=== PATIENT | male | born 1955 | race Caucasian/White ===

== ENCOUNTER → 2017-07-05 | Outpatient (CLI) | payer OTHER ==
[~2017-07-05] MED LIST: ASPI81CH PO; BETAPACE PO; CARV25 PO; CHLO25B PO; CHOL10002 PO; LISI20 PO; Norco 5-325 Ta1 EACH PO; PRED20 PO; TAMS.4ER PO
[2017-07-05 17:51] LABS: BASOPHILS ABSOLUTE AUTO 0.06 K/mm3 (0.00-0.23); BASOPHILS PERCENT AUTO 1 % (0-2); EOSINOPHILS ABSOLUTE AUTO 0.14 K/mm3 (0.00-0.68); EOSINOPHILS PERCENT AUTO 2 % (0-6); Hematocrit 47.7 % (37.0-53.0); Hemoglobin 15.8 g/dL (13.5-17.5); IMMATURE GRAN ABSOLUTE AUTO 0.02 K/mm3 (0.00-0.10); IMMATURE GRAN PERCENT AUTO 0 % (0-1); LYMPHOCYTES ABSOLUTE AUTO 1.29 K/mm3 (0.84-5.20); LYMPHOCYTES PERCENT AUTO 17 % (21-46); MONOCYTES ABSOLUTE AUTO 0.51 K/mm3 (0.16-1.47); MONOCYTES PERCENT AUTO 7 % (4-13); Mean Corpuscular HGB Conc 33.1 g/dL (31.5-36.5); Mean Corpuscular Volume 91 fL (80-100); Mean Platelet Volume 10.8 fL (9.1-12.4); NEUTROPHILS ABSOLUTE AUTO 5.72 K/mm3 (1.96-9.15); NEUTROPHILS PERCENT AUTO 74 % (41-73); Platelet Count 234 K/mm3 (150-400); RDW Coefficient Variation 13.9 % (11.7-14.2); RDW Standard Deviation 46.7 fL (35.1-46.3); Red Blood Cell Count 5.27 M/mm3 (4.30-5.90); White Blood Cell Count 7.74 K/mm3 (4.00-11.30)
[2017-07-05 19:05] LABS: Alanine Aminotransfer (ALT/SGP 96 U/L (12-78); Albumin, Blood 3.3 g/dL (3.4-5.0); Alk Phos 85 U/L (50-136); Anion Gap 8 mmol/L (6-16); Aspartate Aminotrans (AST/SGOT 73 U/L (12-37); Bilirubin, Total 0.8 mg/dL (0.1-1.0); Blood Urea Nitrogen 15 mg/dL (8-24); Bun/Creatinine Ratio 18.1 (12.0-20.0); CHOL/HDL RATIO 3.3; CO2, Blood 22 mmol/L (21-32); Calcium, Blood 8.6 mg/dL (8.5-10.1); Chloride, Blood 111 mmol/L (98-108); Cholesterol 148 mg/dL (50-200); Creatinine, Blood 0.83 mg/dL (0.60-1.20); Globulin, Blood 3.3 g/dL (2.2-4.0); Glomerular Filtration Rate >60 (60-); Glucose, Blood 99 mg/dL (70-99); HDL Cholesterol 45 mg/dL (>39); LDL/HDL RATIO 1.8; Low Density Lipoprotein Chol 79 mg/dL (0-110); Potassium, Blood 4.4 mmol/L (3.5-5.5); Sodium, Blood 141 mmol/L (136-145); Total Protein, Blood 6.6 g/dL (6.4-8.2); Triglycerides 118 mg/dL (30-160); Very Low Density Lipoprot Chol 23 mg/dL (6-32)
== END | disposition home or self-care (01) ==
LOC: LAB 17:40
PROVIDERS: Nurse Practitioner Family
DX: E55.9 Vitamin D deficiency, unspecified (principal); I42.9 Cardiomyopathy, unspecified; I10 Essential (primary) hypertension
CPT/HCPCS: 80053; 80061; 82306; 84443; 85025

== ENCOUNTER 2017-09-04 07:24 | Day surgery (SDC) | payer OTHER ==
[~2017-09-04] VITALS: Ht 172.7 cm; Wt 87.5 kg
[~2017-09-04 07:24] MED LIST changes: -BETAPACE PO; -PRED20 PO; -TAMS.4ER PO
== END 2017-09-04 22:37 | disposition home or self-care (01) ==
LOC: ORSCMMR 07:24 → ORD 08:30 → ORSCMMR 22:37
PROVIDERS: Internal Medicine Gastroenterology
PROC: 0DBK8ZX Excision of Ascending Colon, Via Natural or Artificial Opening Endoscopic, Diagnostic (ICD-10-PCS; principal; 2017-09-04 08:30)
PROC: 0DBN8ZX Excision of Sigmoid Colon, Via Natural or Artificial Opening Endoscopic, Diagnostic (ICD-10-PCS; principal; 2017-09-04 08:30)
DX: R19.5 Other fecal abnormalities (principal); D12.2 Benign neoplasm of ascending colon; D12.5 Benign neoplasm of sigmoid colon; K64.4 Residual hemorrhoidal skin tags; K57.30 Diverticulosis of large intestine without perforation or abscess without bleeding; I42.8 Other cardiomyopathies; Z79.82 Long term (current) use of aspirin; Z79.899 Other long term (current) drug therapy
CPT/HCPCS: 88305; J7120

== ENCOUNTER 2018-04-09 07:29 | Observation (INO) | payer OTHER ==
[~2018-04-09] VITALS: Ht 170.2 cm; Wt 91.9 kg
[~2018-04-09 07:29] MED LIST changes: +BETAPACE PO; +TAMS.4ER PO
[2018-04-10] MEDS ORDERED: PRED20 PO ×2 (14:32→14:43)
== END 2018-04-10 15:13 | disposition home or self-care (01) ==
LOC: ICUE 07:29 → MHTC 07:29 → PCU 10:28 → ICUE 16:19 → MHTC 04-10 00:01 → ICUE 04-10 00:01
DX: Z45.02 Encounter for adjustment and management of automatic implantable cardiac defibrillator (principal); J95.811 Postprocedural pneumothorax; J44.1 Chronic obstructive pulmonary disease with (acute) exacerbation; I42.9 Cardiomyopathy, unspecified; I10 Essential (primary) hypertension; J93.9 Pneumothorax, unspecified; I42.0 Dilated cardiomyopathy; I47.2 Ventricular tachycardia; I49.01 Ventricular fibrillation; Z87.891 Personal history of nicotine dependence; Z79.899 Other long term (current) drug therapy
CPT/HCPCS: 33249; 71045; 71046; 76937; 94640; 96365; 96375; 96376; 99152; 99153; C1721; C1898; G0378; J0360; J0690; J1644; J2250; J2405; J2920; J3010; J7030; J7040; Q9967

== ENCOUNTER 2020-03-16 09:11 | Day surgery (SDC) | payer OTHER ==
[~2020-03-16] VITALS: Ht 175.3 cm; Wt 93.8 kg
[~2020-03-16 09:11] MED LIST changes: +AMLO5 PO; +ASPI325 PO; +FINA5 PO; +PRED20 PO; +SOTO80 PO; +Vitamin D2000 UNIT PO; +ZESTRIL40 M1 PO
== END 2020-03-16 11:44 | disposition home or self-care (01) ==
LOC: ORSCSDS 09:11
PROVIDERS: Ophthalmology
PROC: 08RK3JZ Replacement of Left Lens with Synthetic Substitute, Percutaneous Approach (ICD-10-PCS; principal; 2020-03-16 10:30)
DX: H25.042 Posterior subcapsular polar age-related cataract, left eye (principal); H21.81 Floppy iris syndrome; I10 Essential (primary) hypertension; I25.10 Atherosclerotic heart disease of native coronary artery without angina pectoris; I25.2 Old myocardial infarction; Z87.891 Personal history of nicotine dependence; Z95.0 Presence of cardiac pacemaker; I63.9 Cerebral infarction, unspecified; Z79.899 Other long term (current) drug therapy; Z79.82 Long term (current) use of aspirin
CPT/HCPCS: J2001; J2250; J3010; J3301; J7040; V2632

== ENCOUNTER 2020-03-30 09:52 | Day surgery (SDC) | payer OTHER ==
[~2020-03-30] VITALS: Ht 172.7 cm; Wt 93.4 kg
== END 2020-03-30 12:03 | disposition home or self-care (01) ==
LOC: ORSCSDS 09:52
PROVIDERS: Ophthalmology
PROC: 08RJ3JZ Replacement of Right Lens with Synthetic Substitute, Percutaneous Approach (ICD-10-PCS; principal; 2020-03-30 11:00)
DX: H25.11 Age-related nuclear cataract, right eye (principal); I10 Essential (primary) hypertension; I25.2 Old myocardial infarction; I25.10 Atherosclerotic heart disease of native coronary artery without angina pectoris; Z95.0 Presence of cardiac pacemaker; Z79.82 Long term (current) use of aspirin; Z79.899 Other long term (current) drug therapy
CPT/HCPCS: 82947; J2001; J2250; J2704; J3010; J3300; J3301; J7040; V2632

== ENCOUNTER 2024-03-10 19:33 | Emergency (ER) | payer OTHER ==
[~2024-03-10] VITALS: Ht 172.7 cm; Wt 95.2 kg
[2024-03-10 20:51] LABS: BASOPHILS ABSOLUTE AUTO 0.05 K/mm3 (0.00-0.23); BASOPHILS PERCENT AUTO 1 % (0-2); EOSINOPHILS PERCENT AUTO 2 % (0-6); Hematocrit 44.7 % (37.0-53.0); Hemoglobin 14.4 g/dL (13.5-17.5); IMMATURE GRAN ABSOLUTE AUTO 0.04 K/mm3 (0.00-0.10); IMMATURE GRAN PERCENT AUTO 0 % (0-1); LYMPHOCYTES ABSOLUTE AUTO 1.62 K/mm3 (0.84-5.20); LYMPHOCYTES PERCENT AUTO 18 % (21-46); MONOCYTES ABSOLUTE AUTO 1.02 K/mm3 (0.16-1.47); MONOCYTES PERCENT AUTO 11 % (4-13); Mean Corpuscular HGB 29.9 pg (26.0-34.0); Mean Corpuscular HGB Conc 32.2 g/dL (31.5-36.5); Mean Corpuscular Volume 93 fL (80-100); Mean Platelet Volume 9.4 fL (9.1-12.4); NEUTROPHILS ABSOLUTE AUTO 6.18 K/mm3 (1.96-9.15); NEUTROPHILS PERCENT AUTO 68 % (41-73); Platelet Count 281 K/mm3 (150-400); RDW Coefficient Variation 14.3 % (11.7-14.2); Red Blood Cell Count 4.82 M/mm3 (4.30-5.90); White Blood Cell Count 9.11 K/mm3 (4.00-11.30)
[2024-03-10 21:32] LABS: Albumin, Blood 2.9 g/dL (3.4-5.0); Albumin/Globulin Ratio 0.7 (0.8-1.8); Bilirubin, Total 0.3 mg/dL (0.1-1.0); Bun/Creatinine Ratio 25.7 (12.0-20.0); Calcium, Blood 9.5 mg/dL (8.5-10.1); Creatinine, Blood 0.78 mg/dL (0.60-1.20); Globulin, Blood 3.9 g/dL (2.2-4.0); Potassium, Blood 4.5 mmol/L (3.5-5.5); Total Protein, Blood 6.8 g/dL (6.4-8.2)
[2024-03-10 23:30] VITALS: BP 146/85
[2024-03-10] MEDS ORDERED: PredniSONE 20 MG Tab PO ONE (23:40)
[2024-03-10] MEDS ORDERED: DELTASONE20 MG PO (23:41)
== END 2024-03-10 23:54 | disposition home or self-care (01) ==
LOC: ER 19:33
PROVIDERS: Student in an Organized Health Care Education/Training Program
DX: M25.551 Pain in right hip (principal); M25.552 Pain in left hip; M25.562 Pain in left knee; M25.561 Pain in right knee; M25.511 Pain in right shoulder; I10 Essential (primary) hypertension; J18.9 Pneumonia, unspecified organism; Z79.82 Long term (current) use of aspirin; Z79.899 Other long term (current) drug therapy; Z95.0 Presence of cardiac pacemaker
CPT/HCPCS: 80053; 83880; 85025; 99285; J7512

== ENCOUNTER 2024-08-17 18:18 | Observation (INO) | payer OTHER, MEDICARE ==
[~2024-08-17] VITALS: Ht 172.7 cm; Wt 94.8 kg
[~2024-08-17 18:18] MED LIST changes: -ASPI325 PO; +DELTASONE20 MG PO
[2024-08-17] MEDS ORDERED: Diphth,Pertuss(Acell),Tet Vac 0.5 ML VIAL IM ONE (18:30)
[2024-08-17] MEDS ORDERED: Lactated Ringer's 1,000 ML IV ONE (18:30)
[2024-08-17 18:34] LABS: BASOPHILS PERCENT AUTO 1 % (0-2); EOSINOPHILS PERCENT AUTO 2 % (0-6); Hematocrit 47.1 % (37.0-53.0); Hemoglobin 15.3 g/dL (13.5-17.5); IMMATURE GRAN ABSOLUTE AUTO 0.15 K/mm3 (0.00-0.10); IMMATURE GRAN PERCENT AUTO 1 % (0-1); LYMPHOCYTES ABSOLUTE AUTO 1.26 K/mm3 (0.84-5.20); LYMPHOCYTES PERCENT AUTO 9 % (21-46); MONOCYTES ABSOLUTE AUTO 1.01 K/mm3 (0.16-1.47); MONOCYTES PERCENT AUTO 7 % (4-13); Mean Corpuscular HGB 27.6 pg (26.0-34.0); Mean Corpuscular HGB Conc 32.5 g/dL (31.5-36.5); Mean Corpuscular Volume 85 fL (80-100); Mean Platelet Volume 9.1 fL (9.1-12.4); NEUTROPHILS ABSOLUTE AUTO 11.06 K/mm3 (1.96-9.15); NEUTROPHILS PERCENT AUTO 80 % (41-73); Platelet Count 265 K/mm3 (150-400); RDW Coefficient Variation 16.5 % (11.7-14.2); RDW Standard Deviation 51.6 fL (35.1-46.3); Red Blood Cell Count 5.54 M/mm3 (4.30-5.90); White Blood Cell Count 13.78 K/mm3 (4.00-11.30)
[2024-08-17 18:53] LABS: Albumin, Blood 2.9 g/dL (3.4-5.0); Albumin/Globulin Ratio 0.9 (0.8-1.8); Bilirubin, Total 0.5 mg/dL (0.1-1.0); Bun/Creatinine Ratio 28.5 (12.0-20.0); Calcium, Blood 8.9 mg/dL (8.5-10.1); Creatinine, Blood 0.88 mg/dL (0.60-1.20); Globulin, Blood 3.4 g/dL (2.2-4.0); Potassium, Blood 4.1 mmol/L (3.5-5.5); Total Protein, Blood 6.3 g/dL (6.4-8.2)
[2024-08-17] MEDS ORDERED: Morphine Sulfate 4 MG/1 ML Injection IV ONE (19:05)
[2024-08-17 19:52] LABS: Source, Urine Clean Catch
[2024-08-17 19:58] LABS: Appearance, Urine Clear (Clear); Bilirubin, Urine Neg (Neg); Blood, Urine Neg (Neg); Color, Urine Yellow (P-Yellow); Glucose Qualitative, Urine Neg (Neg); Ketones, Urine Neg (Neg); Leukocyte Esterase, Urine Neg (Neg); Nitrite, Urine Neg (Neg); Protein, Urine 1+ (Neg); Urobilinogen, Urine NORM (Normal)
[2024-08-17] MEDS ORDERED: DICL75ER (22:39)
[2024-08-17] MEDS ORDERED: Cyclobenzaprine5 MG ×2 (22:39)
[2024-08-17] MEDS ORDERED: HYDROmorphone HCl/Pf 1MG SYR IV PRN (22:40)
[2024-08-17] MEDS ORDERED: OxyCODONE HCL 5 MG TAB PO PRN (22:45)
[2024-08-17] MEDS ORDERED: Ondansetron HCl 2 MG / ML 2ML Vial IV PRN (22:45)
[2024-08-17] MEDS ORDERED: FLU VACC TS2024-25(6MOS UP)/PF 45 MCG/0.5 ML SYRINGE IM ONE (22:45)
[2024-08-17] MEDS ORDERED: Acetaminophen 325 MG TABLET PO PRN (22:45)
[2024-08-17 23:01] VITALS: BP 166/94
[2024-08-17] MEDS ORDERED: Ketorolac Tromethamine 15mg Vial IV PRN (23:10)
--- NOTE | 2024-08-18 04:38 | NUR ---
SHIFT SUMMARY JIM WAS ALERT AND FULLY ORIENTED ON ARRIVAL FROM THE ED. PT ABLE TO AMBULATE SELF FROM GOURNEY TO BED. PT USING URINAL APPROPRIATELY. PT C/O PAIN TO R RIBS, MEDICATED PER EMAR. PAIN WELL CONTROLLED AT THIS TIME. NO ACUTE EVENTS OR CHANGES TO PT CONDITION AFTER ARRIVAL.
[2024-08-18 04:39] VITALS: BP 139/94
[2024-08-18 05:40] LABS: Hematocrit 43.9 % (37.0-53.0); Hemoglobin 14.4 g/dL (13.5-17.5); Mean Corpuscular HGB 28.2 pg (26.0-34.0); Mean Corpuscular HGB Conc 32.8 g/dL (31.5-36.5); Mean Corpuscular Volume 86 fL (80-100); Mean Platelet Volume 9.3 fL (9.1-12.4); Platelet Count 254 K/mm3 (150-400); RDW Coefficient Variation 16.8 % (11.7-14.2); Red Blood Cell Count 5.11 M/mm3 (4.30-5.90); White Blood Cell Count 9.69 K/mm3 (4.00-11.30)
[2024-08-18 06:42] LABS: Bun/Creatinine Ratio 22.6 (12.0-20.0); Calcium, Blood 8.9 mg/dL (8.5-10.1); Creatinine, Blood 0.8 mg/dL (0.60-1.20); Magnesium, Blood 2.4 mg/dL (1.6-2.4); Potassium, Blood 4.3 mmol/L (3.5-5.5)
[2024-08-18 07:08] VITALS: BP 159/89
[2024-08-18] MEDS ORDERED: Enoxaparin 40 MG/0.4 ML SYR SC SCH (09:00)
[2024-08-18] MEDS ORDERED: Sennosides 8.6 MG Tab PO SCH (09:00)
[2024-08-18 11:12] VITALS: BP 156/110
[2024-08-18 14:47] VITALS: BP 153/103
[2024-08-18] MEDS ORDERED: OXYC5 PO ×2 (15:26)
[2024-08-18 15:38] VITALS: BP 148/111
--- NOTE | 2024-08-18 15:54 | NUR ---
PT SBP HIGH, REPORTED TO DR CEDENO. PT TO RESUME HOME MEDS UPON DC.
--- NOTE | 2024-08-18 15:56 | NUR ---
PT AMBULATED IN FOSTER W/O DIFFICULTY. USED IS AND WAS ABLE TO INHALE AND RAISE TO 2000. REPEATED MULTIPLE TIMES. WISHES TO DC HOME.
[2024-09-10] MEDS ORDERED: OMEP20ER PO (12:18)
[2024-09-10] MEDS ORDERED: CARVEDILOL25 M9 PO (12:18)
== END 2024-08-18 16:20 | disposition home or self-care (01) ==
LOC: ER 18:18 → SURS 18:19 → ER 20:32 → SURS 20:32
PROVIDERS: Student in an Organized Health Care Education/Training Program; ADMIT Surgery
DX: S22.41XA Multiple fractures of ribs, right side, initial encounter for closed fracture (principal); R55 Syncope and collapse; I50.9 Heart failure, unspecified; I11.0 Hypertensive heart disease with heart failure; D72.829 Elevated white blood cell count, unspecified; I44.7 Left bundle-branch block, unspecified; E66.9 Obesity, unspecified; V67.5XXA Driver of heavy transport vehicle injured in collision with fixed or stationary object in traffic accident, initial encounter; Z79.82 Long term (current) use of aspirin; Z79.52 Long term (current) use of systemic steroids; I25.2 Old myocardial infarction; Z86.73 Personal history of transient ischemic attack (TIA), and cerebral infarction without residual deficits; Z86.19 Personal history of other infectious and parasitic diseases; Z95.810 Presence of automatic (implantable) cardiac defibrillator; Z68.33 Body mass index [BMI] 33.0-33.9, adult
CPT/HCPCS: 36415; 70450; 71260; 72125; 74177; 80048; 80053; 83690; 83735; 84484; 85025; 85027; 90471; 90715; 93005; 93010; 96372; 96374; 99285-25; A9270; G0378; J1650; J2270; J7120; Q9967

== ENCOUNTER 2024-09-03 21:00 | Observation (INO) | payer MEDICARE ==
[~2024-09-03] VITALS: Ht 172.7 cm; Wt 96.7 kg
[~2024-09-03 21:00] MED LIST changes: +Cyclobenzaprine5 MG; +DICL75ER; +OXYC5 PO
[2024-09-03 21:19] LABS: BASOPHILS ABSOLUTE AUTO 0.06 K/mm3 (0.00-0.23); BASOPHILS PERCENT AUTO 1 % (0-2); EOSINOPHILS ABSOLUTE AUTO 0.25 K/mm3 (0.00-0.68); EOSINOPHILS PERCENT AUTO 3 % (0-6); Hematocrit 41.2 % (37.0-53.0); Hemoglobin 13.5 g/dL (13.5-17.5); IMMATURE GRAN ABSOLUTE AUTO 0.05 K/mm3 (0.00-0.10); IMMATURE GRAN PERCENT AUTO 1 % (0-1); LYMPHOCYTES ABSOLUTE AUTO 1.08 K/mm3 (0.84-5.20); LYMPHOCYTES PERCENT AUTO 12 % (21-46); MONOCYTES ABSOLUTE AUTO 0.77 K/mm3 (0.16-1.47); MONOCYTES PERCENT AUTO 9 % (4-13); Mean Corpuscular HGB 28.4 pg (26.0-34.0); Mean Corpuscular HGB Conc 32.8 g/dL (31.5-36.5); Mean Corpuscular Volume 87 fL (80-100); Mean Platelet Volume 9.1 fL (9.1-12.4); NEUTROPHILS ABSOLUTE AUTO 6.71 K/mm3 (1.96-9.15); NEUTROPHILS PERCENT AUTO 75 % (41-73); Platelet Count 296 K/mm3 (150-400); RDW Coefficient Variation 15.9 % (11.7-14.2); RDW Standard Deviation 50.1 fL (35.1-46.3); Red Blood Cell Count 4.76 M/mm3 (4.30-5.90); White Blood Cell Count 8.92 K/mm3 (4.00-11.30)
[2024-09-03 21:43] LABS: Albumin, Blood 2.8 g/dL (3.4-5.0); Albumin/Globulin Ratio 0.8 (0.8-1.8); Bilirubin, Total 0.3 mg/dL (0.1-1.0); Bun/Creatinine Ratio 31.7 (12.0-20.0); Calcium, Blood 8.3 mg/dL (8.5-10.1); Creatinine, Blood 0.76 mg/dL (0.60-1.20); Globulin, Blood 3.3 g/dL (2.2-4.0); Potassium, Blood 3.6 mmol/L (3.5-5.5); Total Protein, Blood 6.1 g/dL (6.4-8.2)
[2024-09-03] MEDS ORDERED: FLU VACC TS2024-25(6MOS UP)/PF 45 MCG/0.5 ML SYRINGE IM ONE (23:35)
[2024-09-03] MEDS ORDERED: Nitroglycerin 0.4 MG SUBL SL PRN (23:35)
[2024-09-03] MEDS ORDERED: Acetaminophen 325 MG TABLET PO PRN (23:35)
[2024-09-04 05:40] LABS: BASOPHILS ABSOLUTE AUTO 0.06 K/mm3 (0.00-0.23); BASOPHILS PERCENT AUTO 1 % (0-2); EOSINOPHILS ABSOLUTE AUTO 0.28 K/mm3 (0.00-0.68); EOSINOPHILS PERCENT AUTO 3 % (0-6); Hematocrit 41.4 % (37.0-53.0); Hemoglobin 13.6 g/dL (13.5-17.5); IMMATURE GRAN ABSOLUTE AUTO 0.06 K/mm3 (0.00-0.10); IMMATURE GRAN PERCENT AUTO 1 % (0-1); LYMPHOCYTES ABSOLUTE AUTO 1.44 K/mm3 (0.84-5.20); LYMPHOCYTES PERCENT AUTO 17 % (21-46); MONOCYTES ABSOLUTE AUTO 1.03 K/mm3 (0.16-1.47); MONOCYTES PERCENT AUTO 12 % (4-13); Mean Corpuscular HGB 28.3 pg (26.0-34.0); Mean Corpuscular HGB Conc 32.9 g/dL (31.5-36.5); Mean Corpuscular Volume 86 fL (80-100); Mean Platelet Volume 8.8 fL (9.1-12.4); NEUTROPHILS ABSOLUTE AUTO 5.47 K/mm3 (1.96-9.15); NEUTROPHILS PERCENT AUTO 66 % (41-73); Platelet Count 289 K/mm3 (150-400); RDW Coefficient Variation 16.1 % (11.7-14.2); White Blood Cell Count 8.34 K/mm3 (4.00-11.30)
[2024-09-04 06:08] LABS: Alanine Aminotransfer (ALT/SGP 181 U/L (12-78); Albumin, Blood 2.8 g/dL (3.4-5.0); Albumin/Globulin Ratio 0.8 (0.8-1.8); Alk Phos 135 U/L (50-136); Anion Gap 11 mmol/L (3-11); Aspartate Aminotrans (AST/SGOT 58 U/L (12-37); Bilirubin, Total 0.5 mg/dL (0.1-1.0); Blood Urea Nitrogen 17 mg/dL (8-24); CHOL/HDL RATIO 4.5; CO2, Blood 24 mmol/L (21-32); Calcium, Blood 8.4 mg/dL (8.5-10.1); Chloride, Blood 109 mmol/L (98-108); Cholesterol 175 mg/dL (50-200); Creatinine, Blood 0.71 mg/dL (0.60-1.20); Globulin, Blood 3.4 g/dL (2.2-4.0); Glomerular Filtration Rate 101 (60-); Glucose, Blood 106 mg/dL (70-99); HDL Cholesterol 39 mg/dL (>39); LDL/HDL RATIO 2.9; Low Density Lipoprotein Chol 113 mg/dL (0-110); Potassium, Blood 3.9 mmol/L (3.5-5.5); Sodium, Blood 140 mmol/L (136-145); Total Protein, Blood 6.2 g/dL (6.4-8.2); Triglycerides 114 mg/dL (30-160); Very Low Density Lipoprot Chol 22 mg/dL (6-32)
[2024-09-04] MEDS ORDERED: Aspirin 81 MG Chew PO SCH (09:00)
[2024-09-04] MEDS ORDERED: Sotalol HCl 80 MG Tab PO SCH (09:00)
[2024-09-04] MEDS ORDERED: Enoxaparin 40 MG/0.4 ML SYR SC SCH (09:00)
[2024-09-04 13:03] VITALS: BP 127/86
--- NOTE | 2024-09-04 13:25 | NUR ---
ADMISSION NOTE: PATIENT ARRIVED TO THE UNIT AT 1300 VIA WHEELCHAIR, WAS ABLE TO SELF TRANSFER INTO THE BED. PATIENT CONTINUES TO REPORT "FEELING WEIRD" DENIES CHEST PAIN. VITALS OBTAINED AND STABLE; TELE ORDERED. PATIENT SETTLED IN ROOM, CALL LIGHT PROVIDED, NO SIGNS OR SYMPTOMS OF DISTRESS, PLAN OF CARE ONGOING.
[2024-09-04] MEDS ORDERED: TERBINAFINE HC250 MG PO ×2 (13:34)
[2024-09-04] MEDS ORDERED: DICL75ER PO ×2 (13:34)
[2024-09-04 14:43] VITALS: BP 138/82
--- NOTE | 2024-09-04 16:38 | NUR ---
SHIFT SUMMARY: PATIENT IS ALERT AND ORIENTEDX4/INDEPENDENT, MAKES NEEDS KNOWN. HE IS RUNNING A PACED ON TELE; NO EVENTS SINCE ADMISSION. HE IS TO UNDERGO A STRESS TEST TOMORROW 09/05/24 AT 1300; SEE NURSE NOTIFY FOR INSTRUCTIONS. PATIENT IN BED, CALL LIGHT WITHIN REACH, NO SIGNS OR SYMPTOMS OF DISTRESS, PLAN OF CARE ONGOING.
[2024-09-04 21:17] VITALS: BP 157/93
--- NOTE | 2024-09-04 23:31 | NUR ---
2330- VIDEO PRODUCTION SPECIALIST CALLED AND REPORTED ST CHANGES. PRN EKG COMPLETED, NO CHANGES FROM PREVIOUS EKG. PT DENIES CX PAIN/ PRESSURE OR SOB. PROVIDER WALI CALLED AND INFORMED OF OCCURANCE. PROVIDER HAD NO ORDERS.
[2024-09-04 23:53] VITALS: BP 174/91
[2024-09-05 00:01] VITALS: BP 150/89
[2024-09-05] MEDS ORDERED: AmLODIPine Besylate 5 MG Tab PO SCH (00:25)
--- NOTE | 2024-09-05 05:08 | NUR ---
SHIFT SUMMARY JIM WAS ALERT AND FULLY ORIENTED ON ASSESSMENT. PT DENIES CHEST PAIN, PRESSURE, OR ABNORMAL SENSATION, DENIES SOB. DURING THIS SHIFT TELE ALERTED ME THAT PT WAS HAVING SOME ST ELEVATION, HIS B/P WAS ALSO NOTED TO BE TRENDING UP, PT ALSO HAD 7 BEAT RUN OF VTACH PER AWNING FINISHER. PT EMAR WAS LACKING SEVERAL OF THE PT'S HOME MEDS. HOSPITALIST CONTACTED. ORDERS RECIEVED. PT WAS ASYMPTOMATIC T/O SHIFT. NO OTHER CHANGES TO PT CONDITION NOTED.
[2024-09-05 05:38] VITALS: BP 164/102
[2024-09-05 08:15] VITALS: BP 134/93
[2024-09-05] MEDS ORDERED: Lisinopril 20 MG Tab PO SCH (09:00)
[2024-09-05] MEDS ORDERED: Caffeine Citrated 60 MG/3 ML Vial ONE (11:23)
[2024-09-05] MEDS ORDERED: Regadenoson 0.4 MG/5 ML SYRINGE ONE (11:23)
[2024-09-05 14:48] VITALS: BP 138/86
--- NOTE | 2024-09-05 17:36 | NUR ---
SHIFT SUMMARY PATIENT HAD STRESS TEST TODAY AND ORDERS FOR NPO AFTER MIDNIGHT PLACED FOR PROCEDURE IN THE AM. PATIENT ON TELE, HAD A 10 BEAT RUN OF V-TACH, DR. MENDOZA NOTIFIED. PATIENT UP TO VISIT SON IN ROOM 356, DR. MENDOZA IS AWARE AND REPORTS OKAY TO VISIT. TELE AND MED FLOOR CHARGE ARE AWARE. PATIENT IS ATRIAL PACED AT 69 AT THIS TIME PER INDOOR PLANT TECHNICIAN. DENIES CHEST PAIN AND SOB.
[2024-09-05 19:26] VITALS: BP 137/96
[2024-09-05] MEDS ORDERED: Zolpidem Tartrate 10 MG Tab PO SCH (21:00)
[2024-09-06 00:43] VITALS: BP 167/101
[2024-09-06 05:36] VITALS: BP 120/80
--- NOTE | 2024-09-06 05:50 | NUR ---
SHIFT SUMMARY JIM WAS ALERT AND FULLY ORIENTED ON ASSESSMENT. PT DENIES NEW COMPLAINTS, BUT ENDORSES FEELING INTERMITTENTLY LIGHT HEADED DURING DAY SHIFT. 2 CALLS FROM TELE EARLY IN SHIFT FOR SHORT SVT RUNS (7BEAT). NO CALLS PAST 2100. PT HAS NO NEW COMPLAINTS. VARIABLE B/P, BUT MOST OFTEN HYPERTENSIVE. DR AWARE. NO ACUTE EVENTS. PT NPO FROM MIDNIGHT FOR CARDIOLOGY.
[2024-09-06 07:16] VITALS: BP 142/90
--- NOTE | 2024-09-06 10:43 | NUR ---
PATIENT HIT CALL LIGHT.STARTED CUSSING AT THIS FACETER FOR HOW LONG HE HAS BEEN WAITING FOR TEST. RN NOTIFIED
[2024-09-06 13:35] VITALS: BP 111/89
--- NOTE | 2024-09-06 13:50 | NUR ---
DISCHARGE NOTE PT IS A/OX4, HAS BEEN ARGUMENTATIVE W/ STAFF TODAY AND EAGER TO GO HOME DUE TO PROCEDURE BEING DELAYED. DISCHARGE INSTRUCTIONS REVIEWED W/ PT, PT TO FOLLOW UP W/ DR OMALLEY WITHIN ONE WEEK PER DR. MENDOZA. PT DENIES CHEST PAIN/SOB/DIZZINESS TODAY. ASPIRIN FAXED TO [facility]. PT SENT HOME W/ COPY OF DC INSTRUCTIONS. VSS. DC'D VIA WC IN STABLE CONDITION W/ ALL BELONGINGS TO PRIVATE RIDE HOME.
[2024-09-10] MEDS ORDERED: OMEP20ER PO (12:18)
[2024-09-10] MEDS ORDERED: CARVEDILOL25 M9 PO (12:18)
== END 2024-09-06 13:49 | disposition home or self-care (01) ==
LOC: ER 21:00 → ERHOLD 21:01 → SURS 09-04 12:56
PROVIDERS: Student in an Organized Health Care Education/Training Program; ADMIT Student in an Organized Health Care Education/Training Program
DX: I20.9 Angina pectoris, unspecified (principal); I44.7 Left bundle-branch block, unspecified; I42.8 Other cardiomyopathies; I48.91 Unspecified atrial fibrillation; I10 Essential (primary) hypertension; E78.5 Hyperlipidemia, unspecified; K70.30 Alcoholic cirrhosis of liver without ascites; Z79.82 Long term (current) use of aspirin; Z95.0 Presence of cardiac pacemaker; Z79.899 Other long term (current) drug therapy
CPT/HCPCS: 71045; 78452; 80053; 80061; 83036; 83735; 84443; 84484; 85025; 93005; 93010; 93017; 94760; 96372; 99285-25; A9270; A9500; G0378; J0706; J1650; J2785